=== PATIENT | female | born 1990 | race Caucasian/White ===

== ENCOUNTER 2018-12-18 17:53 | Emergency (ER) | payer SELFPAY ==
[2018-12-18 18:15] VITALS: BP 114/78; PULSE 84; TEMP 98.6; BMI 19.0
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
== END 2018-12-18 19:22 | disposition home or self-care (01) ==
LOC: JERFT 17:53
DX: S69.82XA Other specified injuries of left wrist, hand and finger(s), initial encounter (principal); S80.212A Abrasion, left knee, initial encounter; V18.0XXA Pedal cycle driver injured in noncollision transport accident in nontraffic accident, initial encounter; Y92.488 Other paved roadways as the place of occurrence of the external cause; Y93.55 Activity, bike riding; Y99.8 Other external cause status
CPT/HCPCS: 73110-TC-LT-FY; 73130-TC-LT-FY; 73564-TC-LT-FY; 99281-25

== ENCOUNTER 2019-09-21 22:25 | Observation (INO) | payer SELFPAY ==
--- NOTE | 2019-09-21 22:47 | PDOC ---
Attending Attestation - Resident Resident Name: Roverto Nogueira - ED Attending Attestation I have performed the following: I have examined & evaluated the patient, The case was reviewed & discussed with the resident, I agree w/resident's findings & plan - HPI HPI: 09/22/19 00:17 see resident hpi - Physicial Exam PE: 09/22/19 00:17 see resident exam - Medical Decision Making 09/22/19 00:17 29-year-old female complaining of anxiety and elevated heart rate after smoking marijuana Patient has no active chest pain EKG on arrival shows a sinus tachycardia with mild ST depressions at a rate of 160 bpm Plan for labs, EKG, IV fluids Symptoms most likely secondary to ingestion, will reevaluate for additional causes if failure to improve [facility] home
[2019-09-21 22:51] VITALS: BMI 20.1
--- NOTE | 2019-09-21 23:31 | PDOC ---
History of Present Illness - General Chief Complaint: Tachycardia Stated Complaint: PAIN/NAUSEA Time Seen by Provider: 09/21/19 22:44 History Source: Patient Exam Limitations: No Limitations - History of Present Illness Initial Comments: 29F PMH anxiety presenting with tachycardia and tremulousness after vaping marijuana. Endorses SOB and numbness of her hands. Sx started shortly after vaping; states she was using the same supply she has had w/o complications before. Endorses almost daily marijuana use. Was complaining of headache and stomach pain w/ n/v earlier today; took 3 excedrin; states stomach pain has resolved. No drug use, co-ingestion, SI/SA, HI, AVH. SH: Denies tobacco; LGBTQ; states no concerns for . Past History - Past Medical History Allergies/Adverse Reactions: Allergies Allergy/AdvReac Type Severity Reaction Status Date / Time No Known Allergies Allergy Verified 09/22/19 08:48 Home Medications: Ambulatory Orders Ibuprofen 800 mg PO Q8H PRN #20 tablet 12/18/18 Fluoxetine HCl [Prozac -] 20 mg PO DAILY #30 capsule 09/22/19 Miscellaneous Medical Supply [Outpatient Order] 1 each ASDIR #1 misc hydrOXYzine PAMOATE [Vistaril -] 25 mg PO BID PRN #30 capsule 09/22/19 COPD: No Diabetes: No - Surgical History GI Surgery: No - Immunization History Immunization Up to Date: No - Psycho Social/Smoking Cessation Hx Smoking History: Unknown if ever smoked Have you smoked in the past 12 months: No Hx Alcohol Use: No Drug/Substance Use Hx: Yes Review of Systems - Review of Systems Able to Perform ROS?: Yes Comments:: CONSTITUTIONAL: Denies F / C HEENT: endorsed headache RESP: endorses sob CARD: endorses palpitations GI: endorses prior abdominal pain and n/v that has since resolved : Denies dysuria, hematuria, frequency SKIN: Denies rashes NEURO: endorses numbness of hands *Physical Exam - Vital Signs Last Vital Signs Temp Pulse Resp BP Pulse Ox 97.7 F 160 H 30 H 125/87 100 09/21/19 22:25 09/21/19 22:25 09/21/19 22:25 09/21/19 22:25 09/21/19 22:25 - Physical Exam GEN: AAOx3, anxious, tremulous HEENT: NC/AT, EOMI, PERRL. No facial asymmetry. Normal voice. Supple neck w/ FROM. CV: S1/S2, tachycardic, no m/r/g LUNG: CTAB, no wheezes, crackles, rales, rhonchi. GI: Soft, ndnt, +BS, no guarding, no rebound. No masses. MSK: 2+ distal pulses. No LE edema. No obvious deformities of all extremities. SKIN: Warm, dry, no rashes appreciated. PSYCH: Anxious, pleasant, cooperative NEURO: Moving all extremities well. ED Treatment Course - LABORATORY CBC & Chemistry Diagram: 09/22/19 06:50 09/22/19 06:50 - ADDITIONAL ORDERS Additional order review: Laboratory Results 09/21/19 22:44 POC Glucometer 103 09/21/19 22:44 POC Glucometer 103 Medical Decision Making - Medical Decision Making 09/21/19 23:24 29F PMH anxiety presenting with tachycardia and tremulousness after vaping marijuana. Tachycardic, anxious, and tremulous on exam. Heart rate decreased w/ NBR and deep breathing; from 140 to 120s. - labs, drug levels - monitor - ekg 09/22/19 00:12 labs reviewed TSH elevated sending off TFTs 09/22/19 00:58 pt feeling better HR decreased to 80s - f/u Urine studies - f/u TFTs 09/22/19 01:48 Patient feeling tremulous; tachycardia has returned to the 110-120s Sx maybe explained by hyperthyroidism admit for further thyroid w/u; persistent tachycardia Discharge - Discharge Information Problems reviewed: Yes Clinical Impression/Diagnosis: Tachycardia, Elevated TSH - Follow up/Referral - Patient Discharge Instructions - Post Discharge Activity
[2019-09-21 23:38] LABS: BASO % 0.5 % (0-2.0); EOS % 1.3 % (0-4.5); HEMATOCRIT 34.1 % (32.4-45.2); HEMOGLOBIN 11.8 GM/dL (10.7-15.3); LYMPH % 50.2 % (8-40); MCH 31.7 pg (25.7-33.7); MCHC 34.6 g/dl (32.0-36.0); MEAN CELL VOLUME 91.7 fl (80-96); MEAN PLT VOLUME 9.2 fl (7.5-11.1); MONO % 10.3 % (3.8-10.2); NEUT % 37.7 % (42.8-82.8); PLATELET COUNT 207 K/MM3 (134-434); RBC 3.72 M/mm3 (3.60-5.2); RDW 12.4 % (11.6-15.6); WHITE BLOOD COUNT 7.8 K/mm3 (4.0-10.0)
[2019-09-21 23:40] LABS: VENOUS PC02 25.3 mmHg (38-52); VENOUS PH 7.52 (7.31-7.41)
[2019-09-21 23:51] LABS: INR 1.23 (0.83-1.09); PROTHROMBIN TIME (PATIENT) 14.5 SEC (9.7-13.0)
[2019-09-22 00:11] LABS: ALBUMIN 3.9 g/dl (3.4-5.0); ALK PHOS 51 U/L (45-117); ANION GAP 9 MMOL/L (8-16); BILIRUBIN,TOTAL 0.7 mg/dL (0.2-1); CALCIUM 9.1 mg/dL (8.5-10.1); CHLORIDE 108 mmol/L (98-107); CO2 21 mmol/L (21-32); CREATININE 0.9 mg/dL (0.55-1.3); GLUCOSE,RANDOM 125 mg/dL (74-106); POTASSIUM 3.2 mmol/L (3.5-5.1); SGOT/AST 26 U/L (15-37); SGPT/ALT 29 U/L (13-61); SODIUM 138 mmol/L (136-145); TOT PROT 7.5 g/dl (6.4-8.2)
[2019-09-22 00:13] LABS: MAGNESIUM 1.8 mg/dL (1.8-2.4)
[2019-09-22 01:12] LABS: PH,URINE 6.5 (5.0-8.0); URINE APPEARANCE CLEAR; URINE BILIRUBIN NEGATIVE (NEGATIVE); URINE COLOR YELLOW; URINE GLUCOSE (UA) NEGATIVE (NEGATIVE); URINE KETONE TRACE (NEGATIVE); URINE LEUK ESTERASE NEGATIVE (NEGATIVE); URINE NITRITE NEGATIVE (NEGATIVE); URINE PROTEIN NEGATIVE (NEGATIVE); URINE UROBILINOGEN 0.2 mg/dL (0.2-1.0)
[2019-09-22 01:42] LABS: COCAINE, UR NEGATIVE ng/ml (CUTOFF=300); METHADONE, UR NEGATIVE ng/ml (CUTOFF=300); OPIATES, URI NEGATIVE ng/ml (CUTOFF=300); PHENCYCLIDINE,URINE NEGATIVE ng/ml (CUTOFF=25); URINE AMPHETAMINES NEGATIVE ng/ml (CUTOFF=500); URINE BARBITURATES NEGATIVE ng/ml (CUTOFF=200); URINE BENZODIAZEPINES NEGATIVE ng/ml (CUTOFF=200)
[2019-09-22] MEDS ORDERED: SODIUM CHLORIDE 0.9% 500 ML INFUS.BAG IV ONE (02:07)
[2019-09-22 02:18] LABS: ARTERIAL BLOOD GAS BASE EXCESS -2.2 meq/l (-2-2); ARTERIAL BLOOD GAS PCO2 20.9 mmHg (35-45); ARTERIAL BLOOD GAS PO2 122 mmHg (80-100); ARTERIAL BLOOD GAS pH 7.55 (7.35-7.45); CARBOXYHEMOGLOBIN 0.7 % (0-2)
[2019-09-22 02:20] LABS: ALLENS TEST POSITIVE
--- NOTE | 2019-09-22 02:27 | PN ---
Teaching Attending Note Name of Resident: Jose Che ATTENDING PHYSICIAN STATEMENT I saw and evaluated the patient. I reviewed the resident's note and discussed the case with the resident. I agree with the resident's findings and plan as documented. SUBJECTIVE: 29 Y/O F W ANXIETY, Daily Marijuana use, P/W palpitation after using marijuana , in the ED she was found to have HR in 160s which improved with taking deep breath, Utox Negative for cocaine only + for marijuana. She states that she has had anxiety for couple of years that usually is triggered with social triggers, but some time she wakes up at night with the palpitation and anxiety, episodes accompanied with palpitation. At baseline she states that she has unlimited ET and used to bike to work for about [address] about 2 months ago. States that today she has not been drinking enough fluid and has not been eating food. also has episodes of tingling in B/L fingers with the episodes of palpitation and anxiety. She denies any weight loss , no heat or cold intolerance. on admission to the ED she had HR in 160s with stable BP and improved to 100- 110 after 1 LNS. At this time she states that palpitation has improved but when she sat up she has mild worsening of her tachycardia. in the ED also the TSH was sent which was 9 and rest of the TFT is pending OBJECTIVE: Vital Signs - 24 hr 09/21/19 22:25 Temperature 97.7 F Pulse Rate 160 H Respiratory 30 H Rate Blood Pressure 125/87 O2 Sat by Pulse 100 Oximetry (%) CBCD WBC 7.8 K/mm3 (4.0-10.0) 09/21/19 23:10 RBC 3.72 M/mm3 (3.60-5.2) 09/21/19 23:10 Hgb 11.8 GM/dL (10.7-15.3) 09/21/19 23:10 Hct 34.1 % (32.4-45.2) 09/21/19 23:10 MCV 91.7 fl (80-96) 09/21/19 23:10 MCHC 34.6 g/dl (32.0-36.0) 09/21/19 23:10 RDW 12.4 % (11.6-15.6) 09/21/19 23:10 Plt Count 207 K/MM3 (134-434) 09/21/19 23:10 MPV 9.2 fl (7.5-11.1) 09/21/19 23:10 CMP Sodium 138 mmol/L (136-145) 09/21/19 23:10 Potassium 3.2 mmol/L (3.5-5.1) L 09/21/19 23:10 Chloride 108 mmol/L (98-107) H 09/21/19 23:10 Carbon Dioxide 21 mmol/L (21-32) 09/21/19 23:10 Anion Gap 9 MMOL/L (8-16) 09/21/19 23:10 BUN 7.0 mg/dL (7-18) 09/21/19 23:10 Creatinine 0.9 mg/dL (0.55-1.3) 09/21/19 23:10 Random Glucose 125 mg/dL (74-106) H 09/21/19 23:10 Calcium 9.1 mg/dL (8.5-10.1) 09/21/19 23:10 Total Bilirubin 0.7 mg/dL (0.2-1) 09/21/19 23:10 AST 26 U/L (15-37) 09/21/19 23:10 ALT 29 U/L (13-61) 09/21/19 23:10 Alkaline Phosphatase 51 U/L (45-117) 09/21/19 23:10 Total Protein 7.5 g/dl (6.4-8.2) 09/21/19 23:10 Albumin 3.9 g/dl (3.4-5.0) 09/21/19 23:10 CARDIAC ENZYMES Creatine Kinase 128 U/L (26-192) 09/21/19 23:10 Troponin I < 0.02 ng/ml (0.00-0.05) 09/21/19 23:10 ASSESSMENT AND PLAN: 29 Y/O F from [facility], with Hx of Anxiety, never evaluated by psych or PMD,taking over the counter pills, P/W worsening anxiety and plapitation found to have HR in 160s improved to 110s with IVF and abnormal TSH, At this time will give another 1L NS, will get TTE. will wait for the TFT results,will get more information about the side effect of the OTC medication, will consider sending to psych for anxiety based on the results of the TFT. rest of the management per HS note
[2019-09-22] MEDS ORDERED: SODIUM CHLORIDE 1,000 ML IV STA (03:52)
[2019-09-22] MEDS ORDERED: POTASSIUM CHLORIDE TABS 20 MEQ TABLET.ER (FP) PO ONE ×2 (04:39→05:32)
--- NOTE | 2019-09-22 04:56 | HP ---
CHIEF COMPLAINT: Chest pain PCP: None HISTORY OF PRESENT ILLNESS: 29F PMH anxiety presents with tachycardia and tremors after vaping marijuana in the evening. She describes feeling palpitations, and chest pain without radiation. She was short of breath and diaphoretic. She has not had a change in supply of marijuana, and has smoked the same amount and supply previously without any of these symptoms. She describes symptoms of anxiety for most of her life, which usually occur during social situations, and occasionally when she is alone. The symptoms she experienced today were more severe than anything she has felt earlier. She has gone to support groups for anxiety, does not take any medications. She does endorse taking herbal supplement: ashwagandha. She endorses numbness in b/l hands that has never occurred before. She denies headache, change in visions, paresthesias and numbness in other extremities. Denies weight loss of weight gain, and heat and cold intolerance. ER course was notable for: (1)1L bolus NS was given (2)EKG completed: sinus tachycardia HR 124. HR was elevated to 160's. RR of 30 (3)TSH 8.97, utox positive for marijuana, Hypokalemia of 3.2 Recent Travel: None PAST MEDICAL HISTORY: anxiety PAST SURGICAL HISTORY: None FAMILY MEDICAL HISTORY: denies Social History: Smoking: denies Alcohol: occasional Drugs: Daily marijuana use Works as a booth cashier, is normally able to ride her bike to work approximately 2 miles total roundtrip. Immigrated from [facility] 7 years ago Allergies No Known Allergies Allergy (Verified 09/21/19 22:44) HOME MEDICATIONS: Home Medications Medication Instructions Recorded Ibuprofen 800 mg PO Q8H PRN #20 tablet 12/18/18 REVIEW OF SYSTEMS CONSTITUTIONAL: Absent: fever, chills, diaphoresis, generalized weakness, malaise, loss of appetite, weight change HEENT: Absent: rhinorrhea, nasal congestion, throat pain, throat swelling, difficulty swallowing, mouth swelling, ear pain, eye pain, visual changes CARDIOVASCULAR: Present: Palpitations, chest pain Absent: syncope, irregular heart rate, lightheadedness, peripheral edema RESPIRATORY: Absent: cough, shortness of breath, dyspnea with exertion, orthopnea, wheezing, stridor, hemoptysis GASTROINTESTINAL: Absent: abdominal pain, abdominal distension, nausea, vomiting, diarrhea, constipation, melena, hematochezia GENITOURINARY: Absent: dysuria, frequency, urgency, hesitancy, hematuria, flank pain, genital pain MUSCULOSKELETAL: Absent: myalgia, arthralgia, joint swelling, back pain, neck pain SKIN: Absent: rash, itching, pallor HEMATOLOGIC/IMMUNOLOGIC: Absent: easy bleeding, easy bruising, lymphadenopathy, frequent infections ENDOCRINE: Absent: unexplained weight gain, unexplained weight loss, heat intolerance, cold intolerance NEUROLOGIC: Absent: headache, focal weakness or paresthesias, dizziness, unsteady gait, seizure, mental status changes, bladder or bowel incontinence PSYCHIATRIC: Present: anxiety Absent: depression, suicidal or homicidal ideation, hallucinations. PHYSICAL EXAMINATION Vital Signs - 24 hr 09/21/19 09/22/19 22:25 03:02 Temperature 97.7 F Pulse Rate 160 H Pulse Rate [ 103 H Right] Respiratory 30 H 16 Rate Blood Pressure 125/87 Blood Pressure 134/81 [Right Arm] O2 Sat by Pulse 100 100 Oximetry (%) GENERAL: Awake, alert, and fully oriented, in no acute distress. HEAD: Normal with no signs of trauma. EYES: Pupils equal, round and reactive to light, extraocular movements intact, sclera anicteric, conjunctiva clear. EARS, NOSE, THROAT: Ears normal, nares patent, oropharynx clear without exudates. Moist mucous membranes. NECK: Normal range of motion, supple without lymphadenopathy, JVD, or masses. LUNGS: Breath sounds equal, clear to auscultation bilaterally. No wheezes, and no crackles. HEART: Tachycardic, normal S1 and S2 without murmur, rub or gallop. ABDOMEN: Soft, nontender, not distended, normoactive bowel sounds, no guarding, no rebound, no masses. MUSCULOSKELETAL: Normal range of motion at all joints. No bony deformities or tenderness. UPPER EXTREMITIES: 2+ pulses, warm, well-perfused. No cyanosis. No clubbing. No peripheral edema. LOWER EXTREMITIES: 2+ pulses, warm, well-perfused. No calf tenderness. No peripheral edema. NEUROLOGICAL: Cranial nerves II-XII intact. Normal speech. PSYCHIATRIC: Cooperative. Good eye contact, speaks in low voice SKIN: Warm, dry, normal turgor, no rashes or lesions noted, normal capillary refill. Laboratory Results - last 24 hr 09/21/19 09/21/19 09/21/19 22:44 23:10 23:10 WBC RBC Hgb Hct MCV MCH MCHC RDW Plt Count MPV Absolute Neuts (auto) Neutrophils % Lymphocytes % Monocytes % Eosinophils % Basophils % Nucleated RBC % PT with INR INR Anticoagulation Therapy Puncture Site ABG pH ABG pCO2 at Pt Temp ABG pO2 at Pt Temp ABG HCO3 ABG O2 Sat (Measured) ABG O2 Content ABG Base Excess Wilfredo Test VBG pH POC VBG pCO2 POC VBG pO2 VBG HCO3 VBG O2 Sat (Jesus) VBG Base Excess Carboxyhemoglobin Methemoglobin O2 Delivery Device Oxygen Flow Rate Vent Mode Vent Rate Mechanical Rate Pressure Support Vent Sodium Potassium Chloride Carbon Dioxide Anion Gap BUN Creatinine Est GFR (CKD-EPI)AfAm Est GFR (CKD-EPI)NonAf POC Glucometer 103 Random Glucose Calcium Magnesium 1.8 Total Bilirubin AST ALT Alkaline Phosphatase Creatine Kinase Troponin I Total Protein Albumin TSH 8.97 H Free T4 Thyroxine (T4) Resin T3 Uptake Beta HCG, Quant < 1.0 Urine Color Urine Appearance Urine pH Ur Specific [place] Urine Protein Urine Glucose (UA) Urine Ketones Urine Blood Urine Nitrite Urine Bilirubin Urine Urobilinogen Ur Leukocyte Esterase Salicylates 4.9 Opiates Screen Methadone Screen Acetaminophen 9.8 Barbiturate Screen Phencyclidine Screen Ur Amphetamines Screen MDMA (Ecstasy) Screen Benzodiazepines Screen Cocaine Screen U Marijuana (THC) Screen Alcohol, Quantitative Blood Type Antibody Screen 09/21/19 09/21/19 09/21/19 23:10 23:10 23:10 WBC 7.8 RBC 3.72 Hgb 11.8 Hct 34.1 MCV 91.7 MCH 31.7 MCHC 34.6 RDW 12.4 Plt Count 207 MPV 9.2 Absolute Neuts (auto) 3.0 Neutrophils % 37.7 L Lymphocytes % 50.2 H Monocytes % 10.3 H Eosinophils % 1.3 Basophils % 0.5 Nucleated RBC % 0 PT with INR 14.50 H INR 1.23 H Anticoagulation Therapy Puncture Site ABG pH ABG pCO2 at Pt Temp ABG pO2 at Pt Temp ABG HCO3 ABG O2 Sat (Measured) ABG O2 Content ABG Base Excess Wilfredo Test VBG pH POC VBG pCO2 POC VBG pO2 VBG HCO3 VBG O2 Sat (Jesus) VBG Base Excess Carboxyhemoglobin Methemoglobin O2 Delivery Device Oxygen Flow Rate Vent Mode Vent Rate Mechanical Rate Pressure Support Vent Sodium 138 Potassium 3.2 L Chloride 108 H Carbon Dioxide 21 Anion Gap 9 BUN 7.0 Creatinine 0.9 Est GFR (CKD-EPI)AfAm 101.56 Est GFR (CKD-EPI)NonAf 87.63 POC Glucometer Random Glucose 125 H Calcium 9.1 Magnesium Total Bilirubin 0.7 AST 26 ALT 29 Alkaline Phosphatase 51 Creatine Kinase 128 Troponin I < 0.02 Total Protein 7.5 Albumin 3.9 TSH Free T4 Thyroxine (T4) Resin T3 Uptake Beta HCG, Quant Urine Color Urine Appearance Urine pH Ur Specific [place] Urine Protein Urine Glucose (UA) Urine Ketones Urine Blood Urine Nitrite Urine Bilirubin Urine Urobilinogen Ur Leukocyte Esterase Salicylates Opiates Screen Methadone Screen Acetaminophen Barbiturate Screen Phencyclidine Screen Ur Amphetamines Screen MDMA (Ecstasy) Screen Benzodiazepines Screen Cocaine Screen U Marijuana (THC) Screen Alcohol, Quantitative < 3 Blood Type Antibody Screen 09/21/19 09/21/19 09/22/19 23:10 23:10 00:00 WBC RBC Hgb Hct MCV MCH MCHC RDW Plt Count MPV Absolute Neuts (auto) Neutrophils % Lymphocytes % Monocytes % Eosinophils % Basophils % Nucleated RBC % PT with INR INR Anticoagulation Therapy Puncture Site ABG pH ABG pCO2 at Pt Temp ABG pO2 at Pt Temp ABG HCO3 ABG O2 Sat (Measured) ABG O2 Content ABG Base Excess Wilfredo Test VBG pH 7.52 H POC VBG pCO2 25.3 L POC VBG pO2 60.0 H VBG HCO3 20.8 L VBG O2 Sat (Jesus) 93.6 H VBG Base Excess -0.7 Carboxyhemoglobin Methemoglobin O2 Delivery Device Oxygen Flow Rate Vent Mode Vent Rate Mechanical Rate Pressure Support Vent Sodium Potassium Chloride Carbon Dioxide Anion Gap BUN Creatinine Est GFR (CKD-EPI)AfAm Est GFR (CKD-EPI)NonAf POC Glucometer Random Glucose Calcium Magnesium Total Bilirubin AST ALT Alkaline Phosphatase Creatine Kinase Troponin I Total Protein Albumin TSH Free T4 1.13 Thyroxine (T4) Resin T3 Uptake Beta HCG, Quant Urine Color Urine Appearance Urine pH Ur Specific [place] Urine Protein Urine Glucose (UA) Urine Ketones Urine Blood Urine Nitrite Urine Bilirubin Urine Urobilinogen Ur Leukocyte Esterase Salicylates Opiates Screen Methadone Screen Acetaminophen Barbiturate Screen Phencyclidine Screen Ur Amphetamines Screen MDMA (Ecstasy) Screen Benzodiazepines Screen Cocaine Screen U Marijuana (THC) Screen Alcohol, Quantitative Blood Type A NEGATIVE Antibody Screen Negative 09/22/19 09/22/19 09/22/19 00:00 00:25 00:25 WBC RBC Hgb Hct MCV MCH MCHC RDW Plt Count MPV Absolute Neuts (auto) Neutrophils % Lymphocytes % Monocytes % Eosinophils % Basophils % Nucleated RBC % PT with INR INR Anticoagulation Therapy Puncture Site ABG pH ABG pCO2 at Pt Temp ABG pO2 at Pt Temp ABG HCO3 ABG O2 Sat (Measured) ABG O2 Content ABG Base Excess Wilfredo Test VBG pH POC VBG pCO2 POC VBG pO2 VBG HCO3 VBG O2 Sat (Jesus) VBG Base Excess Carboxyhemoglobin Methemoglobin O2 Delivery Device Oxygen Flow Rate Vent Mode Vent Rate Mechanical Rate Pressure Support Vent Sodium Potassium Chloride Carbon Dioxide Anion Gap BUN Creatinine Est GFR (CKD-EPI)AfAm Est GFR (CKD-EPI)NonAf POC Glucometer Random Glucose Calcium Magnesium Total Bilirubin AST ALT Alkaline Phosphatase Creatine Kinase Troponin I Total Protein Albumin TSH Free T4 Thyroxine (T4) 9.1 Resin T3 Uptake 32.8 Beta HCG, Quant Urine Color Yellow Urine Appearance Clear Urine pH 6.5 Ur Specific [place] 1.007 L Urine Protein Negative Urine Glucose (UA) Negative Urine Ketones Trace H Urine Blood Negative Urine Nitrite Negative Urine Bilirubin Negative Urine Urobilinogen 0.2 Ur Leukocyte Esterase Negative Salicylates Opiates Screen Negative Methadone Screen Negative Acetaminophen Barbiturate Screen Negative Phencyclidine Screen Negative Ur Amphetamines Screen Negative MDMA (Ecstasy) Screen Negative Benzodiazepines Screen Negative Cocaine Screen Negative U Marijuana (THC) Screen Positive A* Alcohol, Quantitative Blood Type Antibody Screen 09/22/19 02:05 WBC RBC Hgb Hct MCV MCH MCHC RDW Plt Count MPV Absolute Neuts (auto) Neutrophils % Lymphocytes % Monocytes % Eosinophils % Basophils % Nucleated RBC % PT with INR INR Anticoagulation Therapy No Result Required. Puncture Site Right radial ABG pH 7.55 H ABG pCO2 at Pt Temp 20.9 L ABG pO2 at Pt Temp 122 H ABG HCO3 18.2 L ABG O2 Sat (Measured) 99.0 H ABG O2 Content 17.5 ABG Base Excess -2.2 L Wilfredo Test Positive VBG pH POC VBG pCO2 POC VBG pO2 VBG HCO3 VBG O2 Sat (Jesus) VBG Base Excess Carboxyhemoglobin 0.7 Methemoglobin < 1.0 O2 Delivery Device No Result Required. Oxygen Flow Rate No Result Required. Vent Mode No Result Required. Vent Rate No Result Required. Mechanical Rate No Result Required. Pressure Support Vent No Result Required. Sodium Potassium Chloride Carbon Dioxide Anion Gap BUN Creatinine Est GFR (CKD-EPI)AfAm Est GFR (CKD-EPI)NonAf POC Glucometer Random Glucose Calcium Magnesium Total Bilirubin AST ALT Alkaline Phosphatase Creatine Kinase Troponin I Total Protein Albumin TSH Free T4 Thyroxine (T4) Resin T3 Uptake Beta HCG, Quant Urine Color Urine Appearance Urine pH Ur Specific [place] Urine Protein Urine Glucose (UA) Urine Ketones Urine Blood Urine Nitrite Urine Bilirubin Urine Urobilinogen Ur Leukocyte Esterase Salicylates Opiates Screen Methadone Screen Acetaminophen Barbiturate Screen Phencyclidine Screen Ur Amphetamines Screen MDMA (Ecstasy) Screen Benzodiazepines Screen Cocaine Screen U Marijuana (THC) Screen Alcohol, Quantitative Blood Type Antibody Screen ASSESSMENT/PLAN: 29F PMH of anxiety who presents today after experiencing palpitations after using marijuana. 1) Tachycardia and palpitations after marijuana use -Palpitations, tachypnea on presentation -Urine toxicology positive for marijuana. Other contaminants not present on study. -HR improved with IV fluid hydration -Additional 1 L bolus of NS ordered -F/U repeat EKG -Echocardiogram ordered 2) Elevated TSH -TSH of 8.97 -T4: 1.13 - F/U Free T3 level 3) Hx of anxiety -Follow up with outpatient psychiatrist 4) Hx of Substance use -Counseling on smoking cessation F: Oral hydration E: Monitor K N: Regular diet DVT: Lovenox Dispo: Telemetry Obs Visit type - Emergency Visit Emergency Visit: Yes ED Registration Date: 09/22/19 Care time: The patient presented to the Emergency Department on the above date and was hospitalized for further evaluation of their emergent condition. - New Patient This patient is new to me today: Yes Date on this admission: 09/22/19 - Critical Care Critical Care patient: No ATTENDING PHYSICIAN STATEMENT I saw and evaluated the patient. I reviewed the resident's note and discussed the case with the resident. I agree with the resident's findings and plan as documented. SUBJECTIVE: OBJECTIVE: ASSESSMENT AND PLAN:
[2019-09-22] MEDS: KCL 10 MEQ IVPB 10 MEQ/100 ML INFUS.BAG IVPB SCH ×3 (05:32→08:28)
[2019-09-22] MEDS ORDERED: KCL 10 MEQ IVPB 10 MEQ/100 ML INFUS.BAG IVPB ONE ×2 (05:32→07:00)
[2019-09-22 07:25] LABS: BASO % 0.7 % (0-2.0); EOS % 0.2 % (0-4.5); HEMATOCRIT 30.1 % (32.4-45.2); HEMOGLOBIN 10.5 GM/dL (10.7-15.3); LYMPH % 28.3 % (8-40); MCH 31.8 pg (25.7-33.7); MCHC 34.7 g/dl (32.0-36.0); MEAN CELL VOLUME 91.6 fl (80-96); MEAN PLT VOLUME 8.6 fl (7.5-11.1); MONO % 8.9 % (3.8-10.2); NEUT % 61.9 % (42.8-82.8); PLATELET COUNT 177 K/MM3 (134-434); RBC 3.29 M/mm3 (3.60-5.2); RDW 12.4 % (11.6-15.6); WHITE BLOOD COUNT 5.9 K/mm3 (4.0-10.0)
[2019-09-22 07:40] LABS: ALBUMIN 3.4 g/dl (3.4-5.0); BILIRUBIN,TOTAL 0.6 mg/dL (0.2-1); BLOOD UREA NITROGEN 4.3 mg/dL (7-18); CALCIUM 8.1 mg/dL (8.5-10.1); CREATININE 0.6 mg/dL (0.55-1.3); MAGNESIUM 1.9 mg/dL (1.8-2.4); POTASSIUM 4.1 mmol/L (3.5-5.1); TOT PROT 6.5 g/dl (6.4-8.2)
--- NOTE | 2019-09-22 09:17 | EKG ---
Test Reason : Blood Pressure : / mmHG Vent. Rate : 124 BPM Atrial Rate : 124 BPM P-R Int : 126 ms QRS Dur : 080 ms QT Int : 316 ms P-R-T Axes : 080 084 077 degrees QTc Int : 453 ms SINUS TACHYCARDIA NONSPECIFIC ST ABNORMALITY ABNORMAL ECG NO PREVIOUS ECGS AVAILABLE Confirmed by Jose Munguia MD ([id number]) on 09/22/2019 9:16:55 AM Referred By: Confirmed By:Jose Munguia MD
[2019-09-22] MEDS ORDERED: ENOXAPARIN NA (PORCINE) 40 MG/0.4 ML DISP.SYRIN SQ SCH (10:00)
[2019-09-22] MEDS ORDERED: hydrOXYzine PAMOATE 25 MG CAPSULE (FP) PO PRN (11:55)
--- NOTE | 2019-09-22 11:55 | ECHO ---
Name: CASTELLANOSETHAN JONES Exam:Adult Echocardiogram Study Date: 09/22/2019 11:14 AM Age: 29 yrs Reason For Study: Palpitations Height: 66 in Weight: 125 lb BSA: 1.6 m2 MMode/2D Measurements & Calculations IVSd: 0.65 cm Ao root diam: 2.4 cm LVIDd: 3.9 cm LA dimension: 1.9 cm LVIDs: 2.5 cm ACS: 2.0 cm LVPWd: 0.66 cm EDV(Teich): 65.2 ml LVOT diam: 1.8 cm ESV(Teich): 21.8 ml RV S Anatoliy: 15.3 cm/sec Doppler Measurements & Calculations MV E max anatoliy: 96.3 cm/sec Ao V2 max: 195.8 cm/sec MV A max anatoliy: 71.1 cm/sec Ao max P.3 mmHg MV E/A: 1.4 Ao V2 mean: 122.6 cm/sec MV dec time: 0.18 sec Ao mean P.2 mmHg Ao V2 VTI: 40.4 cm TERRY(I,D): 1.8 cm2 TERRY(V,D): 1.9 cm2 LV V1 max P.9 mmHg MR max anatoliy: 181.6 cm/sec LV V1 mean P.1 mmHg MR max P.5 mmHg LV V1 max: 140.5 cm/sec LV V1 mean: 94.7 cm/sec LV V1 VTI: 28.3 cm SV(LVOT): 73.2 ml TR max anatoliy: 263.8 cm/sec TR max P.1 mmHg PA V2 max: 89.8 cm/sec Med Peak E' Anatoliy: 13.0 cm/sec PA max P.2 mmHg Med E/e': 7.4 Lat Peak E' Anatoliy: 15.7 cm/sec Lat E/e': 6.1 Procedure A complete two-dimensional transthoracic echocardiogram was performed (2D, M-mode, Doppler and color flow Doppler). Left Ventricle The left ventricular size, thickness and function are normal. Ejection Fraction = 70%. The transmitra l spectral Doppler flow pattern is normal for age. The left ventricular wall motion is normal. Right Ventricle The right ventricle is normal in size and function. Atria Normal left and right atrial size and function. Mitral Valve The mitral valve is normal in structure and function. There is trace to mild mitral regurgitation. Tricuspid Valve The tricuspid valve is normal in structure and function. There is Trace to mild tricuspid regurgitati on. Right ventricular systolic pressure is 33 mmhg. Assuming the RA pressure is 5 mmHg. Aortic Valve The aortic valve is normal in structure and function. Pulmonic Valve The pulmonic valve is normal in structure and function. Great Vessels The aortic root is normal size. Pericardium/Pleura There is no pericardial effusion. There is no pleural effusion. Interpretation Summary The left ventricular size, thickness and function are normal Ejection Fraction = 70%. There is trace to mild mitral regurgitation. There is Trace to mild tricuspid regurgitation. MD Jose Munguia 09/22/2019 11:55 AM
[2019-09-22] MEDS ORDERED: FLUoxetine HCL 20 MG CAPSULE PO SCH (12:00)
[2019-09-22 15:44] VITALS: BP 102/65; PULSE 69; TEMP 98.2
[2019-09-23 00:36] LABS: PHOSPHOROUS 3.1 mg/dL (2.5-4.9)
--- NOTE | 2019-09-23 07:20 | PN ---
Teaching Attending Note Name of Resident: Randee Chen ATTENDING PHYSICIAN STATEMENT I saw and evaluated the patient. I reviewed the resident's note and discussed the case with the resident. I agree with the resident's findings and plan as documented. Seen and examined; please see resident note for further historical information. I personally verified all carvalho historical information and exam findings. Personally interpreted all imaging and diagnostics and reviewed appropriate consults. I reviewed all labs and vital signs as per resident note and EMR as documented. I agree with the above assessment and plan unless supplemented by myself in the following. 10 item review of systems completed and is negative aside from as discussed in the subjective data in my own/the resident documentation. VS, labs, imaging reviewed NAD, AAO, resting comfortably in bed. RRR s1/2 no mgr Normal muscle tone, moves all 5 extremities with normal apparent strength Neck is supple, trachea midline, no aj LN Lungs CTAB with sym expansion NT ND +BS no aj organomegaly CN2-12 wnl; no FND NC AT EOMI PERRLA Normal mood, appropriate behavior, euthymic affect No skin breakdown or rashes noted Hospital course: Patient had supraventricular tachycardia after taking marijuana as well as an herbal supplement. There were no aberrancies on telemetry, this resolved with treatment of her anxiety. Discussed with cardiology, can follow-up outpatient. Given prescription for Holter monitor.Overall she has benefited maximally from hospitalization. No chronic medical conditions. No medication changes. Full code Agree with follow-ups and discharge diet, activity, etc. as delineated in resident note
--- NOTE | 2019-09-23 07:22 | DS ---
Physical Exam: SUBJECTIVE: Patient seen and examined OBJECTIVE: Vital Signs Period Temp Pulse Resp BP Sys/Wolfe Pulse Ox Last 24 Hr 98.2 F 69-76 11-14 102-104/54-65 100-100 PHYSICAL EXAM GENERAL: The patient is awake, alert, and fully oriented, in no acute distress. HEAD: Normal with no signs of trauma. EYES: PERRL, extraocular movements intact, sclera anicteric, conjunctiva clear. ENT: Ears normal, nares patent, oropharynx clear without exudates, moist mucous membranes. NECK: Trachea midline, full range of motion, supple. LUNGS: Breath sounds equal, clear to auscultation bilaterally, no wheezes, no crackles, no accessory muscle use. HEART: Regular rate and rhythm, S1, S2 without murmur, rub or gallop. ABDOMEN: Soft, nontender, nondistended, normoactive bowel sounds, no guarding, no rebound, no hepatosplenomegaly, no masses. EXTREMITIES: 2+ pulses, warm, well-perfused, no edema. NEUROLOGICAL: Cranial nerves II through XII grossly intact. Normal speech, gait not observed. PSYCH: Normal mood, normal affect. SKIN: Warm, dry, normal turgor, no rashes or lesions noted. LABS Laboratory Results - last 24 hr 09/22/19 09/22/19 09/22/19 00:00 06:50 06:50 WBC 5.9 RBC 3.29 L Hgb 10.5 L Hct 30.1 L MCV 91.6 MCH 31.8 MCHC 34.7 RDW 12.4 Plt Count 177 MPV 8.6 Absolute Neuts (auto) 3.7 Neutrophils % 61.9 D Lymphocytes % 28.3 D Monocytes % 8.9 Eosinophils % 0.2 D Basophils % 0.7 Nucleated RBC % 0 Sodium 142 Potassium 4.1 Chloride 116 H Carbon Dioxide 20 L Anion Gap 6 L BUN 4.3 L Creatinine 0.6 Est GFR (CKD-EPI)AfAm 144.78 Est GFR (CKD-EPI)NonAf 124.92 Random Glucose 100 Calcium 8.1 L Phosphorus 3.1 Magnesium 1.9 Total Bilirubin 0.6 AST 23 ALT 24 Alkaline Phosphatase 41 L Total Protein 6.5 Albumin 3.4 Vitamin D Level Free T3 4.0 09/22/19 Unknown WBC RBC Hgb Hct MCV MCH MCHC RDW Plt Count MPV Absolute Neuts (auto) Neutrophils % Lymphocytes % Monocytes % Eosinophils % Basophils % Nucleated RBC % Sodium Potassium Chloride Carbon Dioxide Anion Gap BUN Creatinine Est GFR (CKD-EPI)AfAm Est GFR (CKD-EPI)NonAf Random Glucose Calcium Phosphorus Magnesium Total Bilirubin AST ALT Alkaline Phosphatase Total Protein Albumin Vitamin D Level 17.5 L Free T3 HOSPITAL COURSE: Date of Admission:09/22/19 This patient with a PMHx of anxiety presented s/p vaping marijuana with sob, tachypnea, and tachycardia to 160's. Pt was monitored and an echo was obtained which showed an EF of 70% with normal LV, RV function. Pt was given close follow up with [facility] clinic to see myself. Pt given follow up with psychiatry ( Shilpi), given we started 20 mg of fluoxetine and Hydroxyzine as her symptoms are likely due to anxiety. Pt was counseled regarding her need to discontinue marijuana use. Counseled on the harmful effects of the SSRI agent we initiated and told to let her doctor know immediately if she feels she wants to hurt herself etc. Date of Discharge: 09/23/19 Discharge Summary Reason For Visit: ANXIETY, TACHYCARDIA, HIGH THYROID STIMULATING Current Active Problems Tachycardia (Acute) Condition: Good - Instructions Diet, Activity, Other Instructions: You were admitted for having a fast heart beat and shortness of breath after vaping marijuana. We did an ultrasound of your heart (echocardiogram) which was normal. - You should follow up with your clinical trials data coordinator (Dr. Carrizales) within a few days of leaving here. You will be sent on a 24 hour holter monitor as well which evaluated your heart beat and rhythm. - You should follow up with your primary care doctor and if you do not have one (Dr. Leonard Rivera) can be your new PCP at the [facility] clinic. -You can follow up with a psychiatrist for management of your anxiety. If you do not have one, you may make an appointment to see Dr. Dobbins. Recommendations Please STOP taking ashwagandha as this can worsen your anxiety. Medication to start taking after you leave here: Fluoxetine 20mg once a day by mouth. - If you feel like hurting yourself or if you have serious nightmares or other side effects please let your primary care physician know. Hydroxyzine 25 mg by mouth up to two times a day as needed for anxiety. Referrals: Mark Milligan MD [Staff Physician] - 1 Week Leonard Rivera RES [Resident] - 1 Week Rosas Carrizales MD [Staff Physician] - (3-5 days) Disposition: HOME - Home Medications Comprehensive Discharge Medication List: Ambulatory Orders Ibuprofen 800 mg PO Q8H PRN #20 tablet 12/18/18 Fluoxetine HCl [Prozac -] 20 mg PO DAILY #30 capsule 09/22/19 Miscellaneous Medical Supply [Outpatient Order] 1 each ASDIR #1 misc hydrOXYzine PAMOATE [Vistaril -] 25 mg PO BID PRN #30 capsule 09/22/19 ATTENDING PHYSICIAN STATEMENT I saw and evaluated the patient. I reviewed the resident's note and discussed the case with the resident. I agree with the resident's findings and plan as documented. SUBJECTIVE: OBJECTIVE: ASSESSMENT AND PLAN:
== END 2019-09-22 15:44 | disposition home or self-care (01) ==
LOC: JER 22:25 → JERBED 09-22 02:28 → INTOOBSV 09-22 02:28 → UNDOADMOB 09-22 02:28 → JERBED 09-22 03:52
PROVIDERS: ADMIT Internal Medicine; ATTEND Internal Medicine
PROC: 3E0337Z Introduction of Electrolytic and Water Balance Substance into Peripheral Vein, Percutaneous Approach (ICD-10-PCS; principal; 2019-09-22)
PROC: 3E013GC Introduction of Other Therapeutic Substance into Subcutaneous Tissue, Percutaneous Approach (ICD-10-PCS; 2019-09-22)
DX: R00.0 Tachycardia, unspecified (principal); R00.2 Palpitations; F12.10 Cannabis abuse, uncomplicated; R94.6 Abnormal results of thyroid function studies; F41.9 Anxiety disorder, unspecified
CPT/HCPCS: 36415; 36600; 80053; 80307; 81003; 82306; 82330; 82375; 82550; 82803; 82962; 83050; 83735; 83970; 84100; 84436; 84439; 84443; 84479; 84481; 84484; 84702; 85025; 85610; 86850; 86900; 86901; 87086; 93005; 93010; 93306-TC; 99285-25; G0378; J7030